=== PATIENT | female | born 1980 | race Caucasian/White ===

== ENCOUNTER 2017-09-17 21:32 | Emergency (ER) | payer OTHER ==
[~2017-09-17] VITALS: Ht 157.5 cm; Wt 61.9 kg
[~2017-09-17 21:32] MED LIST: AZITHROMYCIN250 MG; BACTRIM,SEPT1 TABLET PO; CEFUROXIME500 MG; CLEOCIN300 MG PO; CLINDAMYCIN HC300 MG PO; ENDOCET 5-3251 EACH; ENDOCET 5-3251 EACH PO; FEOSOL325 MG PO; FLAGYL500 MG PO; FLEXERIL5 MG PO; HYDROCODON-ACE1 EAC7 PO; IBUPROFEN600 MG; IBUPROFEN800 MG PO; INDOCIN25 MG PO; KEFLEX500 MG PO; LEXAPRO5 MG PO; LIDOCAINE20 MG/1 M5 PO; MACROBID100 MG PO; MOTRIN800 MG PO; NAPROXEN500 MG PO; NO HOME MEDS; NORCO 5/3251 TABLET PO; PERCOCET 5/31 TABLET PO; PREDNISONE20 MG PO; PYRIDIUM200 MG PO; VENTOLIN HFA18 GM; VIBRAMYCIN100 MG PO
[2017-09-17] MEDS ORDERED: NORCO 5/3251 TABLET PO (22:14)
[2017-09-17] MEDS ORDERED: CLEOCIN300 MG PO (22:14)
[2017-09-17 22:28] VITALS: BP 132/77
== END 2017-09-17 22:29 | disposition home or self-care (01) ==
LOC: EXP 21:32 → EME 21:32 → EXP 22:29
DX: K02.9 Dental caries, unspecified (principal); K04.7 Periapical abscess without sinus; Z88.5 Allergy status to narcotic agent; Z88.0 Allergy status to penicillin
CPT/HCPCS: 99281; 99284

== ENCOUNTER 2018-02-07 17:34 | Emergency (ER) | payer SELFPAY ==
[~2018-02-07] VITALS: Ht 157.5 cm; Wt 62.8 kg
[2018-02-07] MEDS ORDERED: CLEOCIN300 MG PO (19:19)
[2018-02-07] MEDS ORDERED: INDOCIN50 MG PO (19:19)
[2018-02-07 19:30] VITALS: BP 151/72
== END 2018-02-07 19:30 | disposition home or self-care (01) ==
LOC: EME 17:34
DX: K02.9 Dental caries, unspecified (principal); Z88.5 Allergy status to narcotic agent; Z88.0 Allergy status to penicillin
CPT/HCPCS: 99281; 99283